=== PATIENT | male | born 1950 | race Caucasian/White ===

== ENCOUNTER 2018-07-22 11:10 | Emergency (ER) | payer OTHER ==
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
== END 2018-07-22 14:30 | disposition home or self-care (01) ==
LOC: ER 11:10
DX: M48.02 Spinal stenosis, cervical region (principal); V49.40XA Driver injured in collision with unspecified motor vehicles in traffic accident, initial encounter; I10 Essential (primary) hypertension; Z88.0 Allergy status to penicillin
CPT/HCPCS: 70450; 72125; 99284

== ENCOUNTER 2021-04-25 20:43 | Emergency (ER) | payer OTHER ==
--- OUTSIDE RECORDS SUMMARY | 2021-04-25 20:47 | XMS REPORT | Continuity of Care Document ---
:1950 Author Organization [facility] t Address [address] [place] [address] Care Team Providers Name Role Phone Ernesto Lubin Attending Clinician Unavailable Amee, Ernesto Admitting Clinician Unavailable Payers Payer Name Policy Type Policy Number Effective Date Expiration Date S ource Problems This patient has no known problems. Allergies, Adverse Reactions, Alerts This patient has no known allergies or adverse reactions. Medications This patient has no known medications. Procedures This patient has no known procedures. Encounters Start End Encounter Admission Attending Care Care Encounter Source Date/Time Date/Time Type Type Clinicians Facility Department ID 2021-03-02 2021-03-02 Outpatient BRANNON TerryU SURG [id number] [facility] 07:49:00 07:49:00 [facility] [address] [facility] 2021-03-02 2021-03-02 Outpatient ERNST TerryWU SURG [id number] [facility] 07:49:00 07:49:00 [facility] [id number] [facility] Results Test Description Test Time Test Comments Results Result Comments Source MAGNESIUM 2021-03-02 08:47:00 Test Item Value Reference Range Interpretation Comme nts MAGNESIUM (test code = MAG) 1.6 MG/DL 1.6-2.3 N BASIC METABOLIC [id number] 08:47:00 Test Item Value Reference Range Interpretation Comments SODIUM (test code = 139 MMOL/L 137-145 N NA) POTASSIUM (test code = 4.1 MMOL/L 3.5-5.1 N K) CHLORIDE (test code = 104 MMOL/L 98-107 N CL) CARBON DIOXIDE (test 27 MMOL/L 22-30 N code = CO2) GLUCOSE (test code = 183 MG/DL 74-106 H GLU) BLOOD UREA NITROGEN 10 MG/DL 9-20 N (test code = BUN) GLOMERULAR FILTRATION > 60 Report ing units: RATE (test code = GFR) ml/mi n/1.73 m2 (Modified MDRD Formula)Referen ce Range: > or = 6 0 ml/min/1.73 m2 CREATININE (test code 0.80 MG/DL 0.66-1.25 N = CREAT) CALCIUM (test code = 9.8 MG/DL 8.4-10.2 N CA) LIPID PROFILE (CORONARY RISK)2021-03-02 08:47:00 Test Item Value Reference Range Interpretation Comments TRIGLYCERIDES (test 225 MG/DL 150-199 H TRIGLYCE RIDES code = TRIG) REFERENCE RANGE:Normal: < 150 mg/dLBorderline High: 150-199 mg/dLHi gh: 200-499 mg/dLVe ry High: >=500 mg/ dL CHOLESTEROL (test code 156 MG/DL <200 = CHOL) HDL CHOLESTEROL (test 37 MG/DL 40-59 L code = HDL) LIPOPROTEIN LDL (test 89 MG/DL 0-99 N code = LDL) OPTIMAL........ .<100 mg/dLNEAR OPTIMAL/ABOVE OPTIMAL........ .100-12 9 mg/dL BORDERLINE HIGH.........13 0-159 mg/dL HIGH.........16 0-189 mg/dL VERY HIGH...... ...>/= 190 mg/dL PROTHROMBIN [id number] 08:35:00 Test Item Value Reference Range Interpretation Comments PROTHROMBIN TIME 10.6 SECONDS 9.5-12.7 N PATIENT (test code = PTP) INTERNATIONAL NORMAL 1.0 0.86-1.14 N The INR is to be RATIO (test code = used only for INR) monitoring oral anticoagulantth erap y. INDICATION I NR VALUE ---- ---- ---- -------1. Prophylaxis, de ep venous thrombos is, including hig h risk surgery. 2.0 - 3.0 2. Prophylaxis, de ep venous thrombos is, hip surgery, treatment for d eep venous thrombosis or pulmonary prevention of systemic emboli sm in patients wit h valvular heart disease, atrial fibrillation, tissue heart va lve, or acute myocar dial infarction. 2.0 - 3 .0 3. Mechanical prosthesis hear t valves, recurrent syste ángel embolism. 3.0 - 4.5 PTT [id number] 08:35:00 Test Item Value Reference Range Interpretation Comments PTT ACTIVATED (test code = APTT) 38.8 SECONDS 25.1-36.5 H COVID 19 Asymptomatic IH [id number] 08:27:00 Test Item Value Reference Range Interpretation Comments COVID 19 NEGATIVE Negative "Negative resul ts from Asymptomatic IH AG patients with symptom (test code = onset beyondfiv e days, COVNONPUIAG) should be dunia tracy as presumptive, andconfirmation with a molecular assay , if necessary forpa tient management may be performed. Nega tive results do notr ule out COVID-19 and sh ould not be used as the sole basisfor treatm ent or patient managem ent decisions, includinginfect ion control decisio ns. Negative result s should beconsidered in the context of a pa tients recent exposure s,history, and the presenc e of clinical signs and symptomsconsist ent with COVID-19.This t est detects both vi able andnon-viable S ARS-CoV and SARS CoV-2. Test performance dep endson the amount of virus (antigen) in the sample." Comments to Phleb: PLS RUN TEST [facility]. [facility] W/AUTO [id number] 08:25:00 Test Item Value Reference Range Interpretation Comments WHITE BLOOD CELL (test code = 14.4 K/MM3 3.8-9.8 H WBC) RED BLOOD CELL (test code = 5.55 M/MM3 3.95-5.67 N RBC) HEMOGLOBIN (test code = HGB) 15.9 G/DL 12.4-16.7 N HEMATOCRIT (test code = HCT) 47.3 % 35.9-49.5 N MEAN CELL VOLUME (test code = 85 fL 81.7-96.1 N MCV) MEAN CELL HGB (test code = MCH) 28.6 pg 27.6-33.2 N MEAN CELL HGB CONCETRATION 33.6 % 32.9-35.5 N (test code = MCHC) RED CELL DISTRIBUTION WIDTH 12.4 % 12.1-15.2 N (test code = RDW) PLATELET COUNT (test code = 225 K/MM3 129-368 N PLT) MEAN PLATELET VOLUME (test code 11.2 fl 7.4-10.4 H = MPV) NEUTROPHIL % (test code = NT%) 70.1 % 43-75 N IMMATURE GRANULOCYTE % (test 1.0 % 0.0-2.0 N code = IG%) LYMPHOCYTE % (test code = LY%) 21.3 % 14-44 N MONOCYTE % (test code = MO%) 5.0 % 4-13 N EOSINOPHIL % (test code = EO%) 2.0 % 0-6 N BASOPHIL % (test code = BA%) 0.6 % 0-2 N NUCLEATED RBC % (test code = 0.0 % 0-1.0 N NRBC%) NEUTROPHIL # (test code = NT#) 10.05 K/mm3 2.0-7.6 H IMMATURE GRANULOCYTE # (test 0.15 x10 3/uL 0-0.03 H code = IG#) LYMPHOCYTE # (test code = LY#) 3.06 K/mm3 1.0-3.8 N MONOCYTE # (test code = MO#) 0.72 K/mm3 0.1-0.8 N EOSINOPHIL # (test code = EO#) 0.29 K/mm3 0.0-0.2 H BASOPHIL # (test code = BA#) 0.09 K/mm3 0.0-0.2 N NUCLEATED RBC # (test code = 0.00 K/mm3 0.0-0.1 N NRBC#)
[2021-04-25] MEDS ORDERED: METHYLPREDNISOLONE 125 MG INJ ONE (21:15)
[2021-04-25 21:23] LABS: Absolute Lymphocytes (CBC) 3.3 K/uL (0.7-4.9); Basophils % 0.6 % (0-1.3); Hematocrit 47.7 % (39.6-49.0); Lymphocytes % 25.5 % (15.3-44.8); MPV 9.8 fL (7.6-11.3); RBC Red Blood Cell Count 5.72 M/uL (4.33-5.43)
[2021-04-25 21:26] LABS: Protime INR 1.09
[2021-04-25 21:46] LABS: ALT/SGPT 43 U/L (12-78); AST/SGOT 23 U/L (15-37); Albumin 3.5 g/dL (3.4-5.0); Alkaline Phosphatase 68 U/L (45-117); BUN Blood Urea Nitrogen 23 mg/dL (7-18); Bicarbonate 25 mmol/L (21-32); Bilirubin Direct 0.2 mg/dL (0-0.2); Bilirubin Total 0.5 mg/dL (0.2-1.0); Glucose Level 178 mg/dL (74-106); NT PRO-BNP 11 pg/mL (<125); Potassium 3.9 mmol/L (3.5-5.1); Protein, Total 7.2 g/dL (6.4-8.2); Sodium Level 140 mmol/L (136-145); Troponin (Emerg Dept Use Only) < 0.02 ng/mL (0.0-0.045)
[2021-04-25 21:47] LABS: Magnesium 1.2 mg/dL (1.8-2.4)
[2021-04-25] MEDS ORDERED: MAGNESIUM SULFATE 1 gm IVPB 2 GM/200 ML BAG IV ONE (22:07)
--- NOTE | 2021-04-25 23:43 | ER ---
Nurse's Notes [facility] Name: Florencio Monique Jr Age: 70 yrs Sex: Male : 1950 Arrival Date: 04/25/2021 Time: 20:46 Bed 14 Private MD: Diagnosis: COPD/ Chronic obstructive pulmonary disease with (acute) exacerbation;Hypomagnesemia Presentation: 04/25 21:02 Chief complaint: EMS states: toned out for SOB due to COPD exacerbation while washing ld1 his dog. Upon arrival to pt home SpO2 89% RA. Upon arrival to ER after neb treatment SpO2 93% RA. Coronavirus screen: At this time, the client does not indicate any symptoms associated with coronavirus-19. Ebola Screen: No symptoms or risks identified at this time. Initial Sepsis Screen: Does the patient meet any 2 criteria? No. Patient's initial sepsis screen is negative. Does the patient have a suspected source of infection? No. Patient's initial sepsis screen is negative. Risk Assessment: Do you want to hurt yourself or someone else? Patient reports no desire to harm self or others. Onset of symptoms was April 25, 2021. 21:02 Method Of Arrival: EMS: [facility] ld1 21:02 Acuity: NONI 3 ld1 Triage Assessment: 21:07 General: Appears in no apparent distress. comfortable, Behavior is calm, cooperative, ld1 appropriate for age. Pain: Denies pain. EENT: No signs and/or symptoms were reported regarding the EENT system. Neuro: Level of Consciousness is awake, alert, obeys commands, Oriented to person, place, time, situation, Appropriate for age. Cardiovascular: Capillary refill < 3 seconds Patient's skin is warm and dry. Respiratory: Airway is patent Respiratory effort is even, unlabored, Respiratory pattern is regular, symmetrical. GI: Abdomen is flat, non-distended. : No signs and/or symptoms were reported regarding the genitourinary system. Derm: No signs and/or symptoms reported regarding the dermatologic system. Musculoskeletal: No signs and/or symptoms reported regarding the musculoskeletal system. Historical: - Allergies: 21:07 PENICILLINS; ld1 - Home Meds: 21:07 None [Active]; ld1 - PMHx: 21:07 Diabetes - NIDDM; Hypertension; ld1 - PSHx: 21:07 None; ld1 - Immunization history:: Adult Immunizations up to date, Client reports receiving the 2nd dose of the Covid vaccine. - Social history:: Smoking status: Patient denies any tobacco usage or history of. Screenin:08 Abuse screen: Denies threats or abuse. Denies injuries from another. Nutritional ld1 screening: No deficits noted. Tuberculosis screening: No symptoms or risk factors identified. Fall Risk None identified. Assessment: 21:08 Reassessment: See triage assessment. ld1 22:17 Reassessment: Patient appears in no apparent distress at this time. No changes from ld1 previously documented assessment. Patient and/or family updated on plan of care and expected duration. Pain level reassessed. Patient is alert, oriented x 3, equal unlabored respirations, skin warm/dry/pink. 23:06 Reassessment: Patient appears in no apparent distress at this time. No changes from ld1 previously documented assessment. Patient and/or family updated on plan of care and expected duration. Pain level reassessed. Patient is alert, oriented x 3, equal unlabored respirations, skin warm/dry/pink. 12 00:14 Reassessment: Patient appears in no apparent distress at this time. Patient is alert, lp1 oriented x 3, equal unlabored respirations, skin warm/dry/pink. Patient states feeling better. Patient states symptoms have improved. Respiratory: Respiratory effort is even, unlabored, Denies shortness of breath. Vital Signs: 04/25 21:02 BP 144 / 86; Pulse 105; Resp 18; Temp 98.2(O); Pulse Ox 90% on R/A; Weight 83.91 kg; ld1 Height 5 ft. 10 in. (177.80 cm); Pain 0/10; 22:17 BP 134 / 83; Pulse 101; Resp 13; Pulse Ox 98% on R/A; ld1 23:06 BP 136 / 81; Pulse 93; Resp 17; Pulse Ox 95% on R/A; ld1 12 00:15 BP 136 / 78; Pulse 94; Resp 17; Pulse Ox 94% on R/A; lp1 04/25 21:02 Body Mass Index 26.54 (83.91 kg, 177.80 cm) ld1 ED Course: 04/25 20:46 Patient arrived in ED. bb 20:48 Elmo White PA is PHCP. cp 20:48 Danish Serrano MD is Attending Physician. cp 20:50 Patient has correct armband on for positive identification. Bed in low position. Call [facility] light in reach. Side rails up X 1. Pulse ox on. NIBP on. 20:54 Desiree Rodriguez, RN is Primary Nurse. ld1 21:02 Maintain EMS IV. Dressing intact. Good blood return noted. Site clean \\T\\ dry. 5 21:04 XRAY Chest (1 view) In Process Unspecified. EDMS 21:04 CBC with Automated Diff Sent. mh5 21:04 Liver (Hepatic) Function Sent. 5 21:04 Basic Metabolic Panel Sent. 5 21:04 Basic Metabolic Panel Sent. 5 21:04 CBC with Diff Sent. 5 21:04 LFT's Sent. 5 21:04 Magnesium Sent. 5 21:05 NT PRO-BNP Sent. 5 21:05 PT-INR Sent. [facility] 21:05 Troponin (emerg Dept Use Only) Sent. 5 21:07 Triage completed. ld1 21:07 Arm band placed on right wrist. ld1 21:08 No provider procedures requiring assistance completed. ld1 21:21 COVID-19 (Coronavirus) Document "Date of Onset" if Symptomatic Sent. ld1 21:51 Notified Nurse Practitioner and/or Physician [employer] Carpenter of a critical lab result(s), 1 MAGNESIUM 1.2. 23:30 Report received from TESS Ramírez. lp1 04/26 00:12 Primary Nurse role handed off by Desiree Rodriugez, TESS cs9 00:14 Coleen Joseph, TESS is Primary Nurse. lp1 00:14 IV discontinued, No redness/swelling at site. Pressure dressing applied. lp1 Administered Medications: 04/25 21:21 Drug: SOLU-Medrol (methylPrednisoLONE) 125 mg Route: IVP; Site: left antecubital; ld1 21:22 Follow up: Response: No adverse reaction ld1 22:14 Drug: Magnesium Sulfate 2 grams Route: IVPB; Infused Over: 2 hrs; Site: left ld1 antecubital; 04/26 00:14 Follow up: IV Status: Completed infusion lp1 Outcome: 04/25 23:42 Discharge ordered by . cp 04/26 00:14 Discharged to home ambulatory, with family. lp1 Condition: good Discharge instructions given to patient, Instructed on discharge instructions, follow up and referral plans. medication usage, Demonstrated understanding of instructions, follow-up care, medications, Prescriptions given X 1. 00:15 Patient left the ED. lp1 Signatures: Dispatcher [employer] EDMS Ni Rojas RN RN bb Coleen Joseph RN RN lp1 Elmo White PA PA cp Martinez, Maria [facility] Desiree Rodriguez RN RN 1 Cece Patel 9
--- NOTE | 2021-04-25 23:43 | EDPHYS ---
Physician Documentation [facility] Name: Florencio Monique Jr Age: 70 yrs Sex: Male : 1950 Arrival Date: 04/25/2021 Time: 20:46 Bed 14 Private MD: ED Physician Danish Serrano HPI: 04/25 20:58 This 70 yrs old Male presents to ER via Unassigned with complaints of Shortness of cp Breath. 20:58 The patient has shortness of breath with light activity. cp 20:58 Onset: The symptoms/episode began/occurred today. Duration: The symptoms single episode cp that started while washing dog. Associated signs and symptoms: Pertinent negatives: chest pain, productive cough, diaphoresis, fever, vomiting. Severity of symptoms: in the emergency department the symptoms have improved. Historical: - Allergies: 21:07 PENICILLINS; ld1 - Home Meds: 21:07 None [Active]; ld1 - PMHx: 21:07 Diabetes - NIDDM; Hypertension; ld1 - PSHx: 21:07 None; ld1 - Immunization history:: Adult Immunizations up to date, Client reports receiving the 2nd dose of the Covid vaccine. - Social history:: Smoking status: Patient denies any tobacco usage or history of. ROS: 21:00 Constitutional: Negative for body aches, chills, fever, poor PO intake. cp 21:00 Eyes: Negative for injury, pain, redness, and discharge. cp 21:00 Cardiovascular: Negative for chest pain, edema, palpitations. 21:00 Respiratory: Positive for shortness of breath, at rest. Negative for cough. 21:00 Abdomen/GI: Negative for abdominal pain, nausea, vomiting, and diarrhea, constipation. cp 21:00 Back: Negative for pain at rest, pain with movement. cp 21:00 Skin: Negative for cellulitis, rash. 21:00 Neuro: Negative for altered mental status, dizziness, headache, syncope, weakness. 21:00 All other systems are negative. Exam: 21:05 Constitutional: The patient appears in no acute distress, alert, awake, cp non-diaphoretic, non-toxic, well developed, well nourished. 21:05 Head/Face: Normocephalic, atraumatic. cp 21:05 Eyes: Periorbital structures: appear normal, Conjunctiva: normal, no exudate, no injection, Sclera: no appreciated abnormality, Lids and lashes: appear normal, bilaterally. 21:05 ENT: External ear(s): are unremarkable, Ear canal(s): are normal, clear, TM's: dullness, bilaterally, Nose: is normal, Mouth: Lips: moist, Oral mucosa: moist, Posterior pharynx: Airway: no evidence of obstruction, patent. 21:05 Neck: ROM/movement: is normal, is supple, without pain, no range of motions limitations, no meningismus. 21:05 Chest/axilla: Inspection: normal, Palpation: is normal, no crepitus, no tenderness. 21:05 Cardiovascular: Rate: tachycardic, Rhythm: regular, Edema: is not appreciated, JVD: is not appreciated. 21:05 Respiratory: the patient does not display signs of respiratory distress, Respirations: shallow respirations, that is mild, Breath sounds: decreased breath sounds, that are mild, diffuse, stridor, is not appreciated, wheezing: is not appreciated. 21:05 Abdomen/GI: Inspection: abdomen appears normal, Palpation: abdomen is soft and non-tender, in all quadrants. 21:05 Back: pain, is absent, ROM is normal. 21:05 Skin: cellulitis, is not appreciated, no rash present. 21:05 Neuro: Orientation: to person, place \\T\\ time. Mentation: is normal, Motor: moves all fours, strength is normal, Sensation: is normal. 21:10 ECG was reviewed by the Attending Physician. cp Vital Signs: 21:02 BP 144 / 86; Pulse 105; Resp 18; Temp 98.2(O); Pulse Ox 90% on R/A; Weight 83.91 kg; ld1 Height 5 ft. 10 in. (177.80 cm); Pain 0/10; 22:17 BP 134 / 83; Pulse 101; Resp 13; Pulse Ox 98% on R/A; ld1 23:06 BP 136 / 81; Pulse 93; Resp 17; Pulse Ox 95% on R/A; ld1 12/ 00:15 BP 136 / 78; Pulse 94; Resp 17; Pulse Ox 94% on R/A; lp1 04/25 21:02 Body Mass Index 26.54 (83.91 kg, 177.80 cm) ld1 MDM: 04/25 20:52 Patient medically screened. cp 21:00 Differential diagnosis: Anemia asthma, Bronchitis CHF exacerbation, Myocardial cp Infarction pneumonia, Pneumothorax pulmonary edema, Pulmonary Embolism Unstable Angina. 23:40 Data reviewed: vital signs, nurses notes, lab test result(s), EKG, radiologic studies, cp plain films. 23:40 Test interpretation: by ED physician or midlevel provider: ECG, plain radiologic cp studies. Counseling: I had a detailed discussion with the patient and/or guardian regarding: the historical points, exam findings, and any diagnostic results supporting the discharge/admit diagnosis, lab results, radiology results, to return to the emergency department if symptoms worsen or persist or if there are any questions or concerns that arise at home. Response to treatment: the patient's symptoms have markedly improved after treatment. ED course: VSS. Patient reports symptoms markedly improved. Will discharge to home for continued monitoring. 04/25 20:51 Order name: Basic Metabolic Panel cp 04/25 20:51 Order name: CBC with Diff cp 04/25 20:51 Order name: LFT's cp 04/25 20:51 Order name: Magnesium; Complete Time: 21:51 cp 04/25 20:51 Order name: NT PRO-BNP; Complete Time: 21:51 cp 04/25 20:51 Order name: PT-INR; Complete Time: 21:51 cp 04/25 20:51 Order name: Troponin (emerg Dept Use Only); Complete Time: 21:51 cp 04/25 20:51 Order name: XRAY Chest (1 view) cp 04/25 20:52 Order name: Basic Metabolic Panel; Complete Time: 21:51 EDMS 04/25 22:57 Interpretation: Normal except: CL 108; GLUC 178; BUN 23; GFR 74. cp 04/25 20:52 Order name: CBC with Automated Diff; Complete Time: 21:51 EDMS 04/25 22:57 Interpretation: Normal except: WBC 12.80; RBC 5.72. cp 04/25 20:52 Order name: Liver (Hepatic) Function; Complete Time: 21:51 EDMS 04/25 21:10 Order name: COVID-19 (Coronavirus) Document "Date of Onset" if Symptomatic cp 04/25 21:35 Order name: SARS-COV-2 RT PCR; Complete Time: 22:56 EDMS 04/25 20:51 Order name: EKG; Complete Time: 20:52 cp 04/25 20:51 Order name: Cardiac monitoring; Complete Time: 20:55 cp 04/25 20:51 Order name: EKG - Nurse/Tech; Complete Time: 21:02 cp 04/25 20:51 Order name: IV Saline Lock; Complete Time: 21:02 cp 04/25 20:51 Order name: Labs collected and sent; Complete Time: 20:56 cp 04/25 20:51 Order name: O2 Per Protocol; Complete Time: 20:55 cp 04/25 20:51 Order name: O2 Sat Monitoring; Complete Time: 20:55 04/25 22:57 Order name: Misc. Order: ambulate patient with pulse ox; Complete Time: 23:10 cp EC:10 Rate is 108 beats/min. Rhythm is regular. LA interval is normal. QRS interval is cp normal. QT interval is normal. T waves are Inverted in lead aVL. Interpreted by me. Reviewed by me. Administered Medications: 21:21 Drug: SOLU-Medrol (methylPrednisoLONE) 125 mg Route: IVP; Site: left antecubital; ld1 21:22 Follow up: Response: No adverse reaction ld1 22:14 Drug: Magnesium Sulfate 2 grams Route: IVPB; Infused Over: 2 hrs; Site: left ld1 antecubital; 04/26 00:14 Follow up: IV Status: Completed infusion lp1 Disposition: 05:36 Co-signature as Attending Physician, Danish Serrano MD I agree with the assessment and rn plan of care. Attestation: The patient's history, exam findings, diagnostics, and a summary of any interventions or procedures was reviewed in detail with Elmo CASTLE. Disposition Summary: 04/25/21 23:42 Discharge Ordered Location: Home cp Problem: an acute exacerbation cp Symptoms: have improved cp Condition: Stable cp Diagnosis - COPD/ Chronic obstructive pulmonary disease with (acute) exacerbation cp - Hypomagnesemia cp Followup: cp - With: Private Physician - When: 1 - 2 days - Reason: Recheck today's complaints Discharge Instructions: - Discharge Summary Sheet cp - Hypomagnesemia cp - Chronic Obstructive Pulmonary Disease Exacerbation cp Forms: - Medication Reconciliation Form cp - Thank You Letter cp - Antibiotic Education cp - Prescription Opioid Use cp Prescriptions: - Prednisone 20 mg Oral Tablet - take 2 tablets by ORAL route once daily for 5 days; 10 tablet; Refills: 0, cp Product Selection Permitted Signatures: Dispatcher [employer] EDMS Danish Serrano MD MD rn Page, Corey, PA PA cp Dibbern, Lauren RN RN ld1 Coleen Joseph RN lp1 Corrections: (The following items were deleted from the chart) 04/25 21:35 21:10 CORONAVIRUS ordered. EDMS EDMS
[2021-04-26 00:19] VITALS: TEMP 98.2
[2021-04-26 00:23] VITALS: BP 136/78; O2SAT 94
== END 2021-04-26 00:15 | disposition home or self-care (01) ==
LOC: ER 20:43
DX: J44.1 Chronic obstructive pulmonary disease with (acute) exacerbation (principal); E83.42 Hypomagnesemia; I10 Essential (primary) hypertension; Z20.822 Contact with and (suspected) exposure to COVID-19; Z88.0 Allergy status to penicillin
CPT/HCPCS: 96365; 93005; 85025; 80048; 36415; 83735; 85610; 80076; 84484; 83880; 71045; 96375; 99284; 96366; U0003; J3475; J2930

== ENCOUNTER 2021-09-28 21:32 | Emergency (ER) | payer OTHER ==
--- OUTSIDE RECORDS SUMMARY | 2021-09-28 21:34 | XMS REPORT | Continuity of Care Document ---
:1950 Author Organization [facility] [place] t Address [address] [place] [address] Care Team Providers Name Role Phone Center, [facility] Primary Care Physician [phone] MANUEL Attending Clinician Unavailable Karely Walker MD Attending Clinician Ernesto Lubin Attending Clinician Unavailable MANUEL Admitting Clinician Unavailable Ernesto Lubin Admitting Clinician Unavailable Payers Payer Name Policy Type Policy Number Effective Date Expiration Date S ource Problems Condition Condition Condition Status Onset Resolution Last Treating Co mments Source Name Details Category Date Date Treatment Clinician Date No known No known Disease Unive rs active active ity of problems problems [place] [facility] Allergies, Adverse Reactions, Alerts Allergy Allergy Status Severity Reaction(s) Onset Inactive Treating Comm ents Source Name Type Date Date Clinician Bee Propensi Active Nausea 0 Univers Sting / ty to and/or 6-19 ity of Venom adverse Vomiting 00:00: [place] reaction 00 Medical s to Branch drug Penicill Propensi Active Hives Univer s ins ty to 4-03 ity of adverse 00:00: [place] reaction 00 Medical s Branch Social History Social Habit Start Date Stop Date Quantity Comments Source History of Smoker University of tobacco use [facility] Exposure to Unable to assess Univers ity of SARS-CoV-2 [place] [facility] (event) Branch Tobacco use and 2019-11-04 2019-11-04 Never used Universit y of exposure 00:00:00 00:00:00 [facility] Sex Assigned [birth year] Universit y of 00:00:00 00:00:00 [facility] Smoking Status Start Date Stop Date Source Former smoker 2019-11-04 00:00:00 2019-11-04 00:00:00 Universi ty of [facility] Medications Ordered Filled Start Stop Current Ordering Indication Dosage Frequency Signature Comments Components Source Medication Medication Date Date Medication? Clinician (SIG) Name Name carbidopa-l Yes 1{tbl} Take 1 Un [place] evodopa 1-18 tablet by ity of 25-100 mg 00:00: mouth 3 [place] tablet 00 (three) Medical times Branch daily. Take medication 30 minutes before or after meals. CARBIDOPA-L 2021- No [id number] 1{tbl} Take 1 Univers EVODOPA 1-18 -18 tablet by ity of 25-100 mg 00:00: 00:00 [place] tablet 00 :00 (three) Medical times Branch daily. Take 30 mins before or after meals. albuterol 2020-05 Yes 2{puff} Inhale 2 U nivers 90 2-10 Puffs ity of mcg/actuati 00:00: every 6 [place] as on inhaler 00 (six) Medical hours as Branch needed. tiotropium 2020-05- No INHALE 2 Un [place] bromide 2-10 12-12 SPRAYS BY ity of (SPIRIVA 00:00: 05:59 MOUTH [place] RESPIMAT) 00 :00 DAILY FOR Medic al 2.5 BREATHING Branch mcg/actuati on Mist CARBIDOPA-L 2020-05- No [id number] TAKE 1/2 Univers EVODOPA 0-01 01-18 (ONE-HALF) ity o f 25-100 mg 00:00: 00:00 [place] tablet 00 :00 MOUTH 3 Medical TIMES A Branch DAY FOR 1 WEEK, THEN TAKE 1 TABLET 3 TIMES A DAY lisinopril Yes 10mg Take 10 mg U nivers 10 mg 2-23 by mouth ity of tablet 12:01: at [place] 18 bedtime. Medical Branch simvastatin Yes 10mg Take 10 mg Univers 10 mg 2-23 by mouth ity of tablet 12:01: at [place] 18 bedtime. Medical Branch buPROPion Yes TAKE ONE Univ ers XL 300 mg 2-23 TABLET BY ity o f 24 hr 12:01: MOUTH [place] tablet 18 DAILY Medical Branch finasteride Yes TAKE ONE Un y[place] 5 mg tablet 2-23 TABLET BY ity of 12:01: MOUTH [place] 18 DAILY FOR Medical PROSTATE. Branch *DO NOT CRUSH* glipiZIDE Yes TAKE ONE Univ ers 10 mg 2-23 TABLET BY ity of tablet 12:01: MOUTH [place] 18 TWICE A Medical DAY BEFORE Branch MEALS FOR DIABETES hydroCHLORO Yes 12.5mg Take 12.5 Univers thiazide 2-23 mg by ity of 12.5 mg 12:01: mouth [place] tablet 18 daily. Medical Branch diclofenac Yes 75mg Take 75 mg U nivers 75 mg EC 2-23 by mouth ity of tablet 12:01: as needed [place] 18 for Pain. Medical Branch Omeprazole Yes 1{tbl} Take 1 Uni vers 20 mg 2-23 tablet by ity of tablet 12:01: mouth at [place] 18 bedtime. Medical Branch aspirin 81 Yes Univers mg chewable 3-23 ity of tablet 00:00: [place] 00 Medical Branch cyclobenzap Yes 5mg Take 1 Tab Univers rine 4-03 by mouth 3 ity of (FLEXERIL) 00:00: (three) [place] 5 mg tablet 00 times Medical daily. Branch HYDROcodone Yes 1{tbl} Take 1 Tab Univers -acetaminop 4-03 by mouth ity of hen (NORCO 00:00: every 6 [place] 5) 5-325 mg 00 (six) Medical tablet hours as Branch needed for Pain (scale 7-10). minocycline Yes 100mg Take 1 Cap Univers (MINOCIN) 4-03 by mouth ity of 100 mg 00:00: every 12 [place] capsule 00 (twelve) Medical hours. Branch Immunizations Ordered Filled Immunization Date Status Comments [facility] Immunization Name Name Td 2012-08-18 Completed [facility] 00:00:00 [facility] Vital Signs Vital Name Observation Time Observation Value Comments Source Systolic blood 2021-06-04 16:05:00 162 [facility] pressure [facility] Branch Diastolic blood 2021-06-04 16:05:00 88 mm[facility]Hg[facility] 2021-06-04 16:04:00 78 /min [facility] Body height 2021-06-04 16:04:00 177.8 cm [facility] Body weight 2021-06-04 16:04:00 87.091 kg [facility] BMI 2021-06-04 16:04:00 27.55 kg/m2 [facility] Oxygen saturation 2021-06-04 16:04:00 97 /min [facility] in Arterial blood Medical Br anch by Pulse oximetry Procedures This patient has no known procedures. Encounters Start End Encounter Admission Attending Care Care Encounter Source Date/Time Date/Time Type Type Clinicians Facility Department ID 2021 2021 Outpatient [facility] [address] [place] 02:44:00 02:44:00 [facility] 2021-08-27 2021-08-27 Outpatient [facility] [address] [place] 03:08:00 03:08:00 [facility] 2021-08-14 2021-08-14 Outpatient [facility] [address] [place] 03:18:00 03:18:00 [facility] 2021-07-09 2021-07-09 Outpatient [facility] [address] [place] 02:39:00 02:39:00 [facility] 2021-07-05 2021-07-05 Outpatient [facility] [id number] [place] 03:38:00 03:38:00 [facility] 2021-06-11 2021-06-11 Outpatient JAMISON [facility]LA[facility] [address] [place] 11:20:00 11:20:00 [facility] 2021-06-05 2021-06-05 [facility] [address] [place] 12:53:00 12:53:00 [facility] 2021-06-04 2021-06-04 [facility] [id number] 10:00:00 11:08:02 Visit [facility] [id number] Rosalinda [id number] [place] as EUNICE?BLEA [id number] [address] MEDICAL OFFICE BUILDING 2021-03-02 2021-03-02 Outpatient EL Amee, [facility] [id number] [facility] 07:49:00 07:49:00 Salim [address] [facility] 2021-03-02 2021-03-02 Outpatient ROSANNA Lubin, [facility] [id number] [facility] 07:49:00 07:49:00 [facility] [id number] [facility] Results Test Description Test Time Test Comments Results Result Comments Source MAGNESIUM 2021-03-02 08:47:00 Test Item Value Reference Range Interpretation Comme nts MAGNESIUM (test code = MAG) 1.6 MG/DL 1.6-2.3 N BASIC METABOLIC [id number] 08:47:00 Test Item Value Reference Range Interpretation [...] mg/dL VERY HIGH...... ...>/= 190 mg/dL PROTHROMBIN [id number] 08:35:00 Test Item Value Reference Range Interpretation [...] syste ángel embolism. 3.0 - 4.5 PTT [id number] 08:35:00 Test Item Value Reference Range Interpretation Comments PTT ACTIVATED (test code = APTT) 38.8 SECONDS 25.1-36.5 H COVID 19 Asymptomatic IH [id number] 08:27:00 Test Item Value Reference Range Interpretation [...] Comments to Phleb: PLS RUN TEST GRIC[facility]DA. [facility] W/AUTO [id number] 08:25:00 Test Item Value Reference Range Interpretation [...]
[2021-09-28] MEDS ORDERED: IPRATROPIUM BROM 0.5MG/2.5ML ONE (23:00)
[2021-09-28] MEDS ORDERED: METHYLPREDNISOLONE 125 MG INJ ONE (23:00)
[2021-09-28] MEDS ORDERED: ALBUTEROL 2.5 MG/3 ML NEB SOL ONE (23:01)
[2021-09-28 23:35] LABS: Absolute Lymphocytes (CBC) 4.2 K/uL (0.7-4.9); Hematocrit 46.5 % (39.6-49.0); Lymphocytes % 25.8 % (15.3-44.8); MPV 10.6 fL (7.6-11.3); RBC Red Blood Cell Count 5.81 M/uL (4.33-5.43)
[2021-09-28 23:49] LABS: Potassium 3.7 mmol/L (3.5-5.1); Troponin High Sensitivity 6.8 pg/mL (<58.9)
--- NOTE | 2021-09-29 00:09 | EDPHYS ---
Physician Documentation [facility] Name: Florencio Monique Jr Age: 71 yrs Sex: Male : 1950 Arrival Date: 09/28/2021 Time: 21:34 Bed 20 Private MD: ED Physician Stephon Sumner HPI: 09/28 23:35 This 71 yrs old Male presents to ER via Unassigned with complaints of COPD Exacerbation.ms3 23:35 The patient has shortness of breath After cleaning his sister's dirty trailer out. ms3 Onset: The symptoms/episode began/occurred acutely, 1 hour(s) ago. Duration: The symptoms are continuous, but are markedly better than the original presentation. The patient's shortness of breath is aggravated by nothing, is alleviated by nothing. Associated signs and symptoms: The patient has no apparent associated signs or symptoms. Severity of symptoms: Pain is currently a 0 / 10. Historical: - Allergies: 09/29 00:20 PENICILLINS; todd - PMHx: 00:20 Diabetes - NIDDM; Hypertension; todd - Immunization history:: Client reports receiving the 2nd dose of the Covid vaccine. - Social history:: Smoking status: Patient denies any tobacco usage or history of. ROS: 09/28 23:35 Constitutional: Negative for fever, and chills. Eyes: Negative for injury, pain, ms3 redness, and discharge, Neck: Negative for injury, pain, and swelling, Cardiovascular: Negative for chest pain, and palpitations. Abdomen/GI: Negative for abdominal pain, nausea, vomiting, diarrhea, and constipation, Skin: Negative for injury, rash, and discoloration. 23:35 Respiratory: Positive for shortness of breath, wheezing. ms3 23:35 All other systems are negative. Exam: 23:00 ECG was reviewed by the Attending Physician. ms3 23:35 Constitutional: This is a well developed, well nourished patient who is awake, alert, ms3 and in no acute distress. Head/Face: Normocephalic, atraumatic. Eyes: Pupils equal round and reactive to light, extra-ocular motions intact. Lids and lashes normal. Conjunctiva and sclera are non-icteric and not injected. Periorbital areas with no swelling, redness, or edema. Neck: Trachea midline, no cervical lymphadenopathy. Supple, full range of motion without nuchal rigidity, or vertebral point tenderness. No Meningismus. Chest/axilla: Normal chest wall appearance and motion. Nontender with no deformity. Cardiovascular: Regular rate and rhythm with a normal S1 and S2. No gallops, murmurs, or rubs. Normal PMI, no JVD. No pulse deficits. Respiratory: Lungs have equal breath sounds bilaterally, clear to auscultation and percussion. No rales, rhonchi or wheezes noted. No increased work of breathing, no retractions or nasal flaring. Abdomen/GI: Soft, non-tender, with normal bowel sounds. No distension or tympany. No guarding or rebound. No evidence of tenderness throughout. Back: No spinal tenderness. No costovertebral tenderness. Full range of motion. Skin: Warm, dry with normal turgor. Normal color with no rashes, no lesions, and no evidence of cellulitis. Psych: Awake, alert, with orientation to person, place and time. Behavior, mood, and affect are within normal limits. Vital Signs: 23:14 BP 147 / 87; Pulse 81; Resp 16; Temp 98.3; Pulse Ox 100% on R/A; Pain 0/10; todd 09/29 00:23 BP 141 / 70; Pulse 91; Resp 16; Temp 98.5; Pulse Ox 100% on R/A; Pain 0/10; todd MDM: 09/28 21:58 Patient medically screened. ms3 23:35 Differential diagnosis: Myocardial Infarction pneumonia, pulmonary edema. Data ms3 reviewed: vital signs, nurses notes, lab test result(s), radiologic studies, plain films. Data interpreted: Pulse oximetry: on room air is 100 %. Interpretation: normal. ED course: Discussed labs, EKG, CXR, PE findings with patient. Patient to follow up with PMD as discussed. Patient understands/ agrees with plan. All questions answered. Return precautions given to include worsening symptoms, or any other concerns. Patient is improved, in NAD, non-toxic appearing, ambulatory in ED, speaking full sentences.. 09/28 21:59 Order name: Basic Metabolic Panel; Complete Time: 00:02 ms3 09/28 21:59 Order name: CBC with Diff; Complete Time: 00:02 ms3 09/28 21:59 Order name: Troponin HS; Complete Time: 00:02 ms3 09/28 21:59 Order name: XRAY Chest (1 view) ms3 09/28 21:59 Order name: EKG; Complete Time: 21:59 ms3 09/28 21:59 Order name: Cardiac monitoring; Complete Time: 23:13 ms3 09/28 21:59 Order name: EKG - Nurse/Tech; Complete Time: 23:13 ms3 09/28 21:59 Order name: IV Saline Lock; Complete Time: 23:13 ms3 09/28 21:59 Order name: Labs collected and sent; Complete Time: 23:14 ms3 09/28 21:59 Order name: O2 Per Protocol; Complete Time: 23:14 ms3 09/28 21:59 Order name: O2 Sat Monitoring; Complete Time: 23:14 ms3 EC:00 Rate is 90 beats/min. Rhythm is regular. QRS [place] is Normal. MO interval is normal. ms3 Clinical impression: NSR w/ Non-specific ST/T Changes. Interpreted by me. Administered Medications: 23:00 Drug: Albuterol - atroVENT (ipratropium) (3:1) (2.5 mg - 0.5 mg) 3 ml Route: Nebulizer; todd 23:00 Drug: SOLU-Medrol (methylPREDNISolone sodium succinate) 125 mg Route: IM; Site: affected area; Disposition Summary: 09/29/21 00:08 Discharge Ordered Location: Home ms3 Condition: Stable ms3 Diagnosis - COPD/ Chronic obstructive pulmonary disease, unspecified ms3 Followup: ms3 - With: Private Physician - When: 2 - 3 days - Reason: Recheck today's complaints Discharge Instructions: - Discharge Summary Sheet ms3 - Chronic Obstructive Pulmonary Disease ms3 Forms: - Medication Reconciliation Form ms3 - Thank You Letter ms3 - Antibiotic Education ms3 - Prescription Opioid Use ms3 Prescriptions: - Prednisone 20 mg Oral Tablet - take 2 tablets by ORAL route once daily for 5 days; 10 tablet; Refills: 0, ms3 Product Selection Permitted Signatures: Dispatcher [employer] Stephon Maria DO DO ms3 Ni Rdz RN RN todd Corrections: (The following items were deleted from the chart) 09/29 09:07 09/28 23:35 Constitutional: Negative for fever, and chills. ms3 ms3
--- NOTE | 2021-09-29 00:09 | ER ---
Nurse's Notes [facility] Name: Florencio Monique Jr Age: 71 yrs Sex: Male : 1950 Arrival Date: 09/28/2021 Time: 21:34 Bed 20 Private MD: Diagnosis: COPD/ Chronic obstructive pulmonary disease, unspecified Presentation: 09/29 00:18 Chief complaint: Patient states: SOB after helping his sister at her trailer. todd Coronavirus screen: Vaccine status: Patient reports receiving the 2nd dose of the covid vaccine. Ebola Screen: Patient negative for fever greater than or equal to 101.5 degrees Fahrenheit, and additional compatible Ebola Virus Disease symptoms Patient denies exposure to infectious person. Patient denies travel to an Ebola-affected area in the 21 days before illness onset. Initial Sepsis Screen: Does the patient meet any 2 criteria? No. Patient's initial sepsis screen is negative. Does the patient have a suspected source of infection? No. Patient's initial sepsis screen is negative. Risk Assessment: Do you want to hurt yourself or someone else? Patient reports no desire to harm self or others. Onset of symptoms was September 28, 2021. 00:18 Method Of Arrival: Ambulatory todd 00:18 Acuity: NONI 3 todd Triage Assessment: 00:19 General: Appears in no apparent distress. Behavior is calm, cooperative. Pain: Denies todd pain. Historical: - Allergies: 00:20 PENICILLINS; todd - PMHx: 00:20 Diabetes - NIDDM; Hypertension; todd - Immunization history:: Client reports receiving the 2nd dose of the Covid vaccine. - Social history:: Smoking status: Patient denies any tobacco usage or history of. Screenin:19 Abuse screen: Denies threats or abuse. Denies injuries from another. Nutritional todd screening: No deficits noted. Tuberculosis screening: No symptoms or risk factors identified. Fall Risk None identified. Assessment: 09/28 22:04 Reassessment: Pt found to have been placed in room at this time. I assume from Triage. todd 09/29 00:32 Reassessment: The pt was in no respiratory distress and responded well to the breathing todd treatment. 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 I encouraged him to reach out to her physician to assist in getting help for both him and her. Vital Signs: 09/28 23:14 BP 147 / 87; Pulse 81; Resp 16; Temp 98.3; Pulse Ox 100% on R/A; Pain 0/10; todd 09/29 00:23 BP 141 / 70; Pulse 91; Resp 16; Temp 98.5; Pulse Ox 100% on R/A; Pain 0/10; todd ED Course: 09/28 21:34 Patient arrived in ED. bp1 21:37 Stephon Sumner DO is Attending Physician. ms3 22:03 Ni Rdz, RN is Primary Nurse. todd 22:25 XRAY Chest (1 view) In Process Unspecified. EDMS 23:14 Basic Metabolic Panel Sent. todd 23:14 CBC with Diff Sent. todd 23:14 Troponin HS Sent. todd 09/29 00:19 Triage completed. todd 00:20 No provider procedures requiring assistance completed. todd 00:20 Arm band placed on right wrist. todd 00:21 Bed in low position. Call light in reach. todd 00:32 intact, bleeding controlled, No redness/swelling at site. Pressure dressing applied. todd Administered Medications: 09/28 23:00 Drug: Albuterol - atroVENT (ipratropium) (3:1) (2.5 mg - 0.5 mg) 3 ml Route: Nebulizer; todd 23:00 Drug: SOLU-Medrol (methylPREDNISolone sodium succinate) 125 mg Route: IM; Site: todd affected area; Medication: 09/29 00:21 VIS not applicable for this client. todd Outcome: 00:08 Discharge ordered by . ms3 00:20 Condition: stable todd 00:32 Discharged to home ambulatory. todd 00:32 Discharge instructions given to patient, Instructed on discharge instructions, follow up and referral plans. medication usage, Demonstrated understanding of instructions, follow-up care, medications, Prescriptions given X 1. 00:35 Patient left the ED. todd Signatures: Dispatcher [employer] EDMS Stephon Sumner DO DO ms3 Cindy Kaye bp1 Ni Rdz, RN RN todd
[2021-09-29 01:03] VITALS: O2SAT 100
[2021-09-29 01:05] VITALS: BP 141/70; TEMP 98.5
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
--- NOTE | 2021-09-30 10:06 | EKG ---
Test Date: 2021-09-28 Test Time: 23:00:44 Truck Farmer: MEASUREMENT RESULTS: Intervals: Rate: 90 UT: 168 QRSD: 94 QT: 362 QTc: 442 Harbinger: P: 58 UT: 168 QRS: 37 T: 48 INTERPRETIVE STATEMENTS: Sinus rhythm with occasional premature ventricular complexes Possible Anterior infarct, age undetermined Abnormal ECG Compared to ECG 04/25/2021 21:00:05 Ventricular premature complex(es) now present Sinus tachycardia no longer present Myocardial infarct finding still present Electronically Signed On 09-30-21 10:02:49 CDT by Jabari Wilson
== END 2021-09-29 00:35 | disposition home or self-care (01) ==
LOC: ER 21:32
DX: J44.1 Chronic obstructive pulmonary disease with (acute) exacerbation (principal); E11.9 Type 2 diabetes mellitus without complications; I10 Essential (primary) hypertension; Z88.0 Allergy status to penicillin
CPT/HCPCS: 93005; 85025; 80048; 36415; 84484; 71045; 94640; 96372; 99284; J2930